=== PATIENT | male | born 1960 | race Caucasian/White ===

== ENCOUNTER 2019-09-23 17:17 | Emergency (ER) | payer OTHER ==
--- NOTE | 2019-09-23 18:34 | Emergency Department Record ---
History of Present Illness - General Chief complaint: Flu Like Symptoms Stated complaint: FEVER,CONGESTION, Time Seen by Provider: 09/23/19 17:30 Source: Patient, RN notes reviewed Mode of Arrival: Ambulatory - History of Present Illness Initial comments: patient has a cough for 5 days and he has lung cancer and actively being treated through of and he was seen by the oncologist 2 days ago and flu swab done neg but Rhinovirus came back positive. Patient is actively getting infusions and he was told his white count is down and liver enzymes up and states his eyes are yellow.patient took a cold and sinus medication at 2pm and he had a fever of 102 at that time. states he has lung cancer with mets to liver and sternum and his original diagnosis one year ago and he stopped smoking 5 years ago. Onset/Timin -: Days(s) Location: Generalized Improves with: None Worsens with: None Associated Symptoms: Denies other symptoms - Related Data Home Medications Medication Instructions Recorded Confirmed Last Taken Gabapentin [Neurontin] 300 mg PO ASDIR 09/23/19 09/23/19 09/23/19 Hydrocodone/Acetaminophen [Vicodin 1 tab PO Q6H PRN 09/23/19 09/23/19 09/23/19 5mg/300mg] Ondansetron [Zofran Odt] 4 mg SL ASDIR 09/23/19 09/23/19 09/23/19 Rucaparib Camsylate [Rubraca] 600 mg PO BID 09/23/19 09/23/19 09/23/19 Allergies Allergy/AdvReac Type Severity Reaction Status Date / Time Penicillins Allergy ITCHING Verified 09/23/19 17:35 Travel/Exposure Screening - Travel/Exposure Within Last 30 Days Have you traveled within the last 30 days?: No - Travel/Exposure Within Last Year Have you traveled outside the [place] in the last year?: No - Additonal Travel/Exposure Details Have you been exposed to anyone with a communicable illness?: No - Travel Symptoms Symptom Screening: None Review of Systems Reviewed: No additional complaints except as noted below Constitutional: Reports: As per HPI, Fever. Denies: Chills, Malaise, Night sweats, Weakness, Weight change Eyes: Reports: As per HPI. Denies: Eye discharge, Eye pain, Photophobia, Vision change ENT: Reports: As per HPI, Congestion. Denies: Dental pain, Ear pain, Epistaxis, Hearing loss, Throat pain Respiratory: Reports: As per HPI, Cough. Denies: Dyspnea, Hemoptysis, Stridor, Wheezes Cardiovascular: Reports: As per HPI. Denies: Arrhythmia, Chest pain, Dyspnea on exertion, Edema, Murmurs, Orthopnea, Palpitations, Paroxysmal nocturnal dyspnea, Rheumatic Fever, Syncope Endocrine: Reports: As per HPI. Denies: Fatigue, Heat or cold intolerance, Polydipsia, Polyuria Gastrointestinal: Reports: As per HPI. Denies: Abdominal pain, Constipation, Diarrhea, Hematemesis, Hematochezia, Melena, Nausea, Vomiting Genitourinary: Reports: As per HPI. Denies: Dysuria, Frequency, Hematuria, Incontinence, Retention, Testicular pain, Testicular mass, Urgency Musculoskeletal: Reports: As per HPI. Denies: Arthralgia, Back pain, Gout, Joint swelling, Myalgia, Neck pain Skin: Reports: As per HPI. Denies: Bruising, Change in color, Change in hair/nails, Lesions, Pruritus, Rash Neurological: Reports: As per HPI. Denies: Abnormal gait, Confusion, Headache, Numbness, Paresthesias, Seizure, Tingling, Tremors, Vertigo, Weakness Psychiatric: Reports: As per HPI. Denies: Anxiety, Auditory hallucinations, Depression, Homicidal thoughts, Suicidal thoughts, Visual hallucinations Hematological/Lymphatic: Reports: As per HPI. Denies: Anemia, Blood Clots, Easy bleeding, Easy bruising, Swollen glands Past Medical History - SOCIAL HISTORY Smoking Status: Never smoker Alcohol Use: None Drug Use: None - RESPIRATORY Hx Respiratory Disorders: No - CARDIOVASCULAR Hx Cardio Disorders: No - NEURO Hx Neuro Disorders: No - GI Hx GI Disorders: No - Hx Genitourinary Disorders: No - ENDOCRINE Hx Endocrine Disorders: No - MUSCULOSKELETAL Hx Musculoskeletal Disorders: No - PSYCH Hx Psych Problems: Yes Hx Anxiety: Yes - HEMATOLOGY/ONCOLOGY Hx Hematology/Oncology Disorders: Yes Hx Cancer: Yes (lung) Family Medical History Any Significant Family History?: Yes Hx Cancer: Father Hx Heart Disease: Mother Physical Exam - General General Appearance: Alert, Oriented x3, Cooperative, No acute distress - Head Head exam: Normal inspection - Eye Eye exam: Normal appearance, PERRL Pupils: Normal accommodation - ENT ENT exam: Normal exam, Mucous membranes moist, Normal external ear exam, Normal orophraynx, TM's normal bilaterally Ear exam: Normal external inspection. negative: External canal tenderness Nasal Exam: Normal inspection. negative: Discharge, Sinus tenderness Mouth exam: Normal external inspection, Tongue normal Teeth exam: Normal inspection. negative: Dental caries Throat exam: Normal inspection. negative: Tonsillar erythema, Tonsillar exudate - Neck Neck exam: Normal inspection, Full ROM. negative: Tenderness - Respiratory Respiratory exam: Normal lung sounds bilaterally. negative: Respiratory distress - Cardiovascular Cardiovascular Exam: Regular rate, Normal rhythm, Normal heart sounds - GI/Abdominal GI/Abdominal exam: Soft, Normal bowel sounds. negative: Tenderness - Rectal Rectal exam: Deferred - exam: Deferred - Extremities Extremities exam: Normal inspection, Full ROM, Normal capillary refill. negative: Tenderness - Back Back exam: Reports: Normal inspection, Full ROM. Denies: Muscle spasm, Rash noted, Tenderness - Neurological Neurological exam: Alert, Normal gait, Oriented X3, Reflexes normal - Psychiatric Psychiatric exam: Normal affect, Normal mood - Skin Skin exam: Dry, Intact, Normal color, Warm Course Vital Signs 09/23/19 09/23/19 17:33 17:40 Temperature 98.1 F 98.1 F Pulse Rate [ 72 Right] Respiratory 20 20 Rate Blood Pressure 131/67 [Right Arm] Pulse Ox 99 99 - Reevaluation(s) Reevaluation #1: discussed case with DR Riddle at [facility] and positive for rhinovirus and will treat with fluids and tylenol and motrin. No antibiotics at this time 09/23/19 20:09 Medical Decision Making - Data Complexity MDM Data: Labs Ordered and/or Reviewed (neutophil count 796) - Lab Data Result diagrams: 09/23/19 18:55 09/23/19 18:55 Disposition Clinical Impression: Cough with fever, Rhinovirus Lung cancer, primary, with metastasis from lung to other site Qualifiers: Laterality: unspecified laterality Qualified Code(s): C34.90 - Malignant neoplasm of unspecified part of unspecified bronchus or lung Disposition: Home, Self-Care Condition: (2) Stable Instructions: Acute Bronchitis (ED) Additional Instructions: follow up with oncology tomorrow Forms: Patient Portal Access Time of Disposition: 20:10 Quality - Quality Measures Quality Measures: N/A - Blood Pressure Screening Does Patient Have Any of the Following: No Blood Pressure Classification: Normal BP Reading Systolic Measurement: 115 Diastolic Measurement: 54 Screening for High Blood Pressure: < Normal BP, F/U Not Required > [G8719]
[2019-09-23 19:12] LABS: ABSOLUTE NEUTROPHIL COUNT 0.87; HEMATOCRIT 27.5 % (42.0-52.0); HEMOGLOBIN 9.6 gm/dl (14.0-18.0); MEAN CELL VOLUME 91.7 fl (81-97); MEAN CORPUSCULAR HGB CONC 34.9 g/dl (32-36); MEAN PLATELET VOLUME 10.3 fl (7.4-10.4); PLATELET COUNT 109 K/uL (130-400); RED CELL DISTRIBUTION WIDTH 14.4 % (11.5-14.5); WHITE BLOOD COUNT W/O DIFF 1.7 K/uL (4.2-12.2)
[2019-09-23 19:16] LABS: BLOOD UREA NITROGEN 11 mg/dL (6-20)
[2019-09-23 19:17] LABS: EST GLOMERULAR FILTRATION RATE > 60 mL/min
[2019-09-23 19:18] LABS: BILIRUBIN,TOTAL 1.2 mg/dL (0.2-1.0); TOTAL PROTEIN 5.8 g/dL (6.6-8.7)
[2019-09-23 19:19] LABS: GLUCOSE,RANDOM 116 mg/dL (74-109)
[2019-09-23 19:22] LABS: PLATELET ESTIMATE DECREASED (NORMAL)
[2019-09-23 19:23] LABS: ALBUMIN 3.4 g/dL (4.0-5.0); BILIRUBIN,DIRECT 0.4 mg/dL (0-0.3); HYPOCHROMIA 1+
--- NOTE | 2019-09-23 20:14 | RADIOLOGY REPORT ---
EXAMINATION: Two View Chest Radiographs EXAM DATE: 09/23/2019 7:50 PM TECHNIQUE: Frontal and lateral views INDICATION: cough COMPARISON: CT 09/12/2018, chest x-ray 07/29/2018 ENCOUNTER: Not applicable FINDINGS: The heart, mediastinum, and pulmonary vasculature are normal. Apical pleural scarring noted No lung c onsolidation or pleural effusions are present. IMPRESSION: No acute process. Emphysematous changes better visualized on prior CT Dictated by: HOMERO RIVERA MD on 09/23/2019 8:11 PM. .
== END 2019-09-23 20:23 | disposition home or self-care (01) ==
LOC: ER 17:17
DX: B34.8 Other viral infections of unspecified site (principal); R05 Cough; R50.81 Fever presenting with conditions classified elsewhere; C34.90 Malignant neoplasm of unspecified part of unspecified bronchus or lung; C78.7 Secondary malignant neoplasm of liver and intrahepatic bile duct
CPT/HCPCS: 71046; 80048; 80076; 83605; 84145; 85027; 86140; 99284